=== PATIENT | male | born 1950 | race Asian ===

== ENCOUNTER 2019-11-29 10:01 | Emergency (ER) | payer OTHER ==
[~2019-11-29] VITALS: Ht 182.9 cm; Wt 83.9 kg
[2019-11-29 11:09] LABS: ABSOLUTE NEUTROPHILS 4.8 thou/uL (1.4-8.2); BASOPHILS 0.5 % (0.0-2.0); EOSINOPHILS 1.2 % (0.0-3.0); HEMATOCRIT 45.9 % (42.0-52.0); HEMOGLOBIN 15.5 gm/dL (14.0-18.0); LYMPHOCYTES 17.1 % (24.0-44.0); MCH 30.3 pg (26.0-34.0); MCHC 33.7 g/dL (28.0-37.0); MCV 89.8 fL (80.0-100.0); MONOCYTES 4.7 % (1.0-8.0); PLATELET COUNT 250 thou/uL (150-400); POLYS 76.5 % (36.0-66.0); RBC 5.11 mil/uL (4.50-6.00); RDW 14.1 % (10.5-14.5); WBC 6.2 thou/uL (4.0-11.0)
[2019-11-29 11:13] LABS: URINE BILIRUBIN NEGATIVE (Negative); URINE BLOOD TRACE (Negative); URINE CLARITY CLEAR; URINE COLOR YELLOW; URINE GLUCOSE-RANDOM* NEGATIVE (Negative); URINE KETONES 2+ (Negative); URINE LEUKOCYTES-REFLEX NEGATIVE (Negative); URINE NITRITE-REFLEX NEGATIVE (Negative); URINE PROTEIN (DIPSTICK) NEGATIVE (Negative); URINE SPECIFIC GRAVITY 1.025 (1.005-1.035); URINE UROBILINOGEN 0.2 E.U./dl (0.2-1.0)
[2019-11-29 11:16] LABS: CALCIUM 8.9 mg/dL (8.5-10.1); CREATININE 1.1 mg/dL (0.7-1.3); POTASSIUM 3.5 mmol/L (3.5-5.1)
[2019-11-29 11:25] LABS: ALBUMIN 3.8 g/dL (3.4-5.0); TOTAL BILIRUBIN 0.6 mg/dL (0.2-1.0); TOTAL PROTEIN 6.9 g/dL (6.4-8.2)
[2019-11-29] MEDS ORDERED: ZOFRAN ODT4 MG PO (12:15)
[2019-11-29 13:13] VITALS: BP 139/86
--- NOTE | 2019-11-30 07:51 | EKG ---
[facility] [place] [address] ELECTROCARDIOGRAM REPORT Name: JEANNE GILBERT Room #: DEP [facility]#: [id number] Admission: 11/29/19 Attend Phys: Discharge: 11/29/19 Date of : 52 Report #: [id number] THIS REPORT FOR: cc: FAM - Family physician unknown FAM - Family physician unknown Richar Patel MD [facility] THIS REPORT FOR: //name// [facility] ED Test Date: 2019-11-29 Test Time: 10:08:56 Pat Name: JEANNE GILBERT Department: Room: Gender: Digital Artist: : 1950 Requested By: Catrina Soria Order Number: [id number] MD: Richar Patel Measurements Intervals [place] Rate: 51 P: 35 KS: 147 QRS: 31 QRSD: 108 T: 61 QT: 471 QTc: 434 Interpretive Statements Sinus bradycardia Otherwise normal tracing No previous ECG available for comparison Electronically Signed On 11-30-2019 7:50:43 CDT by Richar Patel [email or web address] <ELECTRONICALLY SIGNED> By: Richar Patel MD, [facility] 11/30/19 0750 D: 06/1007 07 Richar Patel MD, FACC /EPI
== END 2019-11-29 13:21 | disposition home or self-care (01) ==
LOC: ER 10:01
PROVIDERS: Emergency Medicine
DX: R11.2 Nausea with vomiting, unspecified (principal); R42 Dizziness and giddiness; R61 Generalized hyperhidrosis; E03.9 Hypothyroidism, unspecified; G25.81 Restless legs syndrome; F17.210 Nicotine dependence, cigarettes, uncomplicated